=== PATIENT | male | born 1995 | race Asian ===

== ENCOUNTER 2020-10-25 22:18 | Emergency (ER) | payer OTHER ==
[~2020-10-25] VITALS: Ht 167.6 cm; Wt 82.6 kg
[2020-10-25] MEDS ORDERED: FAMOTIDINE INJ 20MG/2ML VIAL (S0028 PER 1) IVP ONE (22:45)
[2020-10-25] MEDS ORDERED: diphenhydrAMINE 50MG/ML VIAL (J1200) IV ONE (22:45)
[2020-10-25] MEDS ORDERED: methylPREDNISolone 125MG 2ML VIAL IV ONE (22:45)
[2020-10-25] MEDS ORDERED: diphenhydrAMINE 50MG/ML VIAL (J1200) As Ordered ONE (22:46)
[2020-10-25] MEDS ORDERED: FAMOTIDINE/NS 20 MG/50 ML BAG (S0028) As Ordered ONE (22:47)
[2020-10-25] MEDS ORDERED: dexameTHASONE 20MG/5ML VIAL (J1100 PER 1MG) As Ordered ONE (22:47)
[2020-10-26] MEDS ORDERED: EPIP0.3I2 IM (01:45)
[2020-10-26] MEDS ORDERED: PRED20TA PO (01:45)
[2020-10-26] MEDS ORDERED: DIPH25CA32 PO (01:45)
[2020-10-26] MEDS ORDERED: CETI-24 PO (01:45)
[2020-10-26 01:58] VITALS: BP 119/71
== END 2020-10-26 02:44 | disposition home or self-care (01) ==
LOC: M ED 22:18
DX: L50.9 Urticaria, unspecified (principal); T78.40XA Allergy, unspecified, initial encounter
CPT/HCPCS: 93041; 94760; 96374; 96375; 99284; J1200; J2930